=== PATIENT | female | born 1985 | race Caucasian/White ===

== ENCOUNTER 2017-12-11 21:59 | Emergency (ER) | payer OTHER ==
[~2017-12-11] VITALS: Ht 162.6 cm; Wt 52.2 kg
[~2017-12-11 21:59] MED LIST: CLEOCIN HCL150 MG PO; MOBIC15 MG PO
[2017-12-11 22:19] VITALS: BP 117/77
== END 2017-12-12 05:22 | disposition home or self-care (01) ==
LOC: ER 21:59
DX: O9A.211 Injury, poisoning and certain other consequences of external causes complicating pregnancy, first trimester (principal); S39.91XA Unspecified injury of abdomen, initial encounter; S10.91XA Abrasion of unspecified part of neck, initial encounter; Z3A.00 Weeks of gestation of pregnancy not specified; F17.210 Nicotine dependence, cigarettes, uncomplicated; Z88.0 Allergy status to penicillin; W01.198A Fall on same level from slipping, tripping and stumbling with subsequent striking against other object, initial encounter; Y92.009 Unspecified place in unspecified non-institutional (private) residence as the place of occurrence of the external cause; Y93.E5 Activity, floor mopping and cleaning; Y99.8 Other external cause status

== ENCOUNTER 2017-12-20 12:22 | Emergency (ER) | payer OTHER ==
[~2017-12-20] VITALS: Ht 160 cm; Wt 52.2 kg
[2017-12-20 12:55] LABS: URINE BILIRUBIN NEGATIVE (Negative); URINE BLOOD NEGATIVE (Negative); URINE CLARITY SL CLOUDY; URINE COLOR YELLOW; URINE GLUCOSE-RANDOM* NEGATIVE (Negative); URINE KETONES TRACE (Negative); URINE LEUKOCYTES TRACE (Negative); URINE NITRITE POSITIVE (Negative); URINE PROTEIN (DIPSTICK) NEGATIVE (Negative); URINE SPECIFIC GRAVITY >= 1.030 (1.005-1.035); URINE UROBILINOGEN 0.2 E.U./dl (0.2-1.0)
[2017-12-20 13:09] LABS: CALCIUM OXALATE 4-10 Moderate /LPF (None Seen); CASTS None Seen /LPF (None Seen); SQUAMOUS 0-3 Few /LPF (0-3)
[2017-12-20 13:10] LABS: URINE RBC None Seen /HPF (0-2); URINE WBC 6-15 Few /HPF (0-5)
[2017-12-20 13:13] LABS: ABSOLUTE NEUTROPHILS 3.7 thou/uL (1.4-8.2); BASOPHILS 0.4 % (0.0-2.0); EOSINOPHILS 1.4 % (0.0-3.0); HEMATOCRIT 39.2 % (37.0-47.0); HEMOGLOBIN 13.6 gm/dL (12.0-15.0); MCH 30.4 pg (26.0-34.0); MCHC 34.6 g/dL (28.0-37.0); MCV 87.8 fL (80.0-100.0); MONOCYTES 6.9 % (1.0-8.0); PLATELET COUNT 273 thou/uL (150-400); POLYS 62.3 % (36.0-66.0); RBC 4.47 mil/uL (4.20-5.00); RDW 12.9 % (10.5-14.5)
[2017-12-20 13:21] LABS: CALCIUM 8.6 mg/dL (8.5-10.1); CREATININE 0.8 mg/dL (0.6-1.0); POTASSIUM 3.4 mmol/L (3.5-5.1)
[2017-12-20] MEDS ORDERED: MACROBID 100 M100 M1 PO (14:34)
[2017-12-20 14:44] VITALS: BP 102/62
[2017-12-21 17:11] LABS: NEISSERIA GONORRHEA-PCR Negative (Negative)
== END 2017-12-20 14:45 | disposition home or self-care (01) ==
LOC: ER 12:22
PROVIDERS: Emergency Medicine
DX: O20.0 Threatened abortion (principal); O23.41 Unspecified infection of urinary tract in pregnancy, first trimester; F17.210 Nicotine dependence, cigarettes, uncomplicated; Z88.0 Allergy status to penicillin; Z3A.11 11 weeks gestation of pregnancy

== ENCOUNTER 2017-12-22 11:40 | Emergency (ER) | payer OTHER ==
[~2017-12-22] VITALS: Ht 160 cm; Wt 51.3 kg
[~2017-12-22 11:40] MED LIST changes: +MACROBID 100 M100 M1 PO
[2017-12-22 11:58] LABS: ABSOLUTE NEUTROPHILS 5.1 thou/uL (1.4-8.2); BASOPHILS 0.7 % (0.0-2.0); EOSINOPHILS 0.9 % (0.0-3.0); HEMATOCRIT 37.7 % (37.0-47.0); HEMOGLOBIN 13.2 gm/dL (12.0-15.0); LYMPHOCYTES 29.2 % (24.0-44.0); MCH 30.7 pg (26.0-34.0); MCV 87.8 fL (80.0-100.0); MONOCYTES 5.9 % (1.0-8.0); PLATELET COUNT 296 thou/uL (150-400); POLYS 63.3 % (36.0-66.0); RBC 4.29 mil/uL (4.20-5.00); RDW 13.3 % (10.5-14.5)
[2017-12-22 12:09] LABS: CALCIUM 9.2 mg/dL (8.5-10.1); POTASSIUM 3.6 mmol/L (3.5-5.1)
[2017-12-22 13:12] VITALS: BP 118/74
== END 2017-12-22 13:13 | disposition home or self-care (01) ==
LOC: ER 11:40
PROVIDERS: Physician Assistant
DX: O36.80X0 Pregnancy with inconclusive fetal viability, not applicable or unspecified (principal); O46.91 Antepartum hemorrhage, unspecified, first trimester; F17.210 Nicotine dependence, cigarettes, uncomplicated; Z88.0 Allergy status to penicillin; Z3A.11 11 weeks gestation of pregnancy

== ENCOUNTER 2020-11-13 21:23 | Emergency (ER) | payer OTHER ==
[~2020-11-13] VITALS: Ht 162.6 cm; Wt 54.4 kg
[2020-11-13 21:24] VITALS: BP 129/87
== END 2020-11-13 22:15 | disposition home or self-care (01) ==
LOC: ER 21:23
DX: S61.411A Laceration without foreign body of right hand, initial encounter (principal); F17.210 Nicotine dependence, cigarettes, uncomplicated; Z88.0 Allergy status to penicillin; W25.XXXA Contact with sharp glass, initial encounter; Y93.E9 Activity, other interior property and clothing maintenance; Y92.89 Other specified places as the place of occurrence of the external cause; Y99.8 Other external cause status

== ENCOUNTER 2021-04-28 11:07 | Emergency (ER) | payer OTHER ==
[~2021-04-28] VITALS: Ht 162.6 cm; Wt 52.2 kg
[2021-04-28 11:46] LABS: ABSOLUTE NEUTROPHILS 10.3 thou/uL (1.4-8.2); BASOPHILS 0.6 % (0.0-2.0); EOSINOPHILS 0.4 % (0.0-3.0); HEMATOCRIT 47.6 % (37.0-47.0); HEMOGLOBIN 16.5 gm/dL (12.0-15.0); MCH 30.7 pg (26.0-34.0); MCHC 34.8 g/dL (28.0-37.0); MCV 88.3 fL (80.0-100.0); MONOCYTES 4.3 % (1.0-8.0); PLATELET COUNT 376 thou/uL (150-400); POLYS 83.7 % (36.0-66.0); RBC 5.39 mil/uL (4.20-5.00); RDW 14.1 % (10.5-14.5); WBC 12.3 thou/uL (4.0-11.0)
[2021-04-28 11:53] LABS: ANION GAP 11 mmol/L (7-16); BUN 15 mg/dL (7-18); CALCIUM 9.7 mg/dL (8.5-10.1); CHLORIDE 102 mmol/L (98-107); CO2 25 mmol/L (21-32); CREATININE 0.9 mg/dL (0.6-1.0); GLUCOSE 100 mg/dL (74-106); POTASSIUM 4.3 mmol/L (3.5-5.1); SODIUM 138 mmol/L (136-145)
[2021-04-28 12:03] LABS: LIPASE 81 U/L (73-393); SGOT 21 U/L (15-37); SGPT 21 U/L (14-59); TOTAL BILIRUBIN 0.4 mg/dL (0.2-1.0); TOTAL PROTEIN 8.6 g/dL (6.4-8.2)
[2021-04-28 12:23] LABS: URINE BILIRUBIN NEGATIVE (Negative); URINE BLOOD NEGATIVE (Negative); URINE CLARITY SL CLOUDY; URINE COLOR YELLOW; URINE GLUCOSE-RANDOM* NEGATIVE (Negative); URINE KETONES TRACE (Negative); URINE LEUKOCYTES-REFLEX TRACE (Negative); URINE PROTEIN (DIPSTICK) NEGATIVE (Negative); URINE SPECIFIC GRAVITY >= 1.030 (1.005-1.035); URINE UROBILINOGEN 0.2 E.U./dl (0.2-1.0)
[2021-04-28 12:24] LABS: URINE NITRITE-REFLEX POSITIVE (Negative)
[2021-04-28] MEDS ORDERED: CEPHALEXIN 250250 M1 PO (13:36)
[2021-04-28] MEDS ORDERED: ZOFRAN ODT4 MG PO (13:36)
[2021-04-28 13:49] VITALS: BP 128/85
--- NOTE | 2021-04-29 07:58 | EKG ---
[address] [address] ELECTROCARDIOGRAM REPORT Name: LORENZO CASANOVA [id number] Admission: 04/28/21 Attend Phys: Discharge: 04/28/21 Date of : 81 Report #: [id number] [facility] ED Test Date: 2021-04-28 Test Time: 11:14:39 Pat Name: LORENZO CASANOVA Department: Room: Gender: F [employer]: RAMESH : 1985 Requested By: Carlos De La Rosa Order Number: [id number] MD: Taiwo Vann Measurements Intervals [place] Rate: 108 P: 81 ME: 129 QRS: 88 QRSD: 84 T: 58 QT: 327 QTc: 439 Interpretive Statements Sinus tachycardia No previous ECG available for comparison Electronically Signed On 04-29-2021 7:57:42 [employer] REPRESENTATIVE by Taiwo Vann [email or web address] <ELECTRONICALLY SIGNED> By: Taiwo Vann MD, [facility] 04/29/21 [id number] Taiwo Vann MD, FACC /EPI
== END 2021-04-28 13:48 | disposition home or self-care (01) ==
LOC: ER 11:07
PROVIDERS: Nurse Practitioner Family
DX: N39.0 Urinary tract infection, site not specified (principal); K56.7 Ileus, unspecified; N83.202 Unspecified ovarian cyst, left side; F17.210 Nicotine dependence, cigarettes, uncomplicated; Z88.0 Allergy status to penicillin